=== PATIENT | female | born 1980 ===

== ENCOUNTER → 2024-01-18 | Outpatient (CLI) | payer OTHER | LOC: LAB 13:51 → LAB SHORT 13:51 | DX: N85.8 Other specified noninflammatory disorders of uterus (principal) | CPT/HCPCS: 88305 ==

== ENCOUNTER → 2024-01-18 | Outpatient (CLI) | payer OTHER ==
[2024-01-31 08:15] LABS: HPV HIGH RISK BY TMA Not Detected; HPV SOURCE Cervical/Vag
== END ==
LOC: LAB SHORT 13:37 → LAB 13:37
PROVIDERS: Obstetrics & Gynecology
DX: Z01.419 Encounter for gynecological examination (general) (routine) without abnormal findings (principal)
CPT/HCPCS: 87624; G0123

== ENCOUNTER 2024-04-10 08:53 | Day surgery (SDC) | payer OTHER ==
[2024-04-10] VITALS (14 sets, daily range): BP systolic 95–121; BP diastolic 56–65
[~2024-04-10] VITALS: Ht 167.6 cm; Wt 85.8 kg
[~2024-04-10 08:53] MED LIST: ALPR1 PO; AMPDEX30CR PO; BUPR150ER PO; CeFAZolin Sodium 2,000 MG in NS 100 ML IV SCH; Lactated Ringer's 1,000 ML IV SCH
[2024-04-10] MEDS ORDERED: IBUP600 PO (09:07)
[2024-04-10] MEDS ORDERED: Bupivacaine 0.5% W/EPI 1:200000 SDV 30 ML Vial ONE (09:29)
[2024-04-10] MEDS ORDERED: propofoL 20 ML IV ONE (09:40)
[2024-04-10] MEDS ORDERED: FentaNYL Citrate 50 MCG/ML 2 ML Injection ONE ×2 (10:27→11:02)
--- NOTE | 2024-04-10 10:29 | NUR ---
Ambulatory in Day Surgery. History, Chart, Medications and Allergies reviewed before start of procedure. Lungs clear T/O to Auscultation. Patient confirms NPO status and agrees with scheduled surgery. Pre-Op teaching done. Pt verbalizes understanding. PT BELONGINGS GIVEN TO SPOUSE FOR SAFEKEEPING.
[2024-04-10] MEDS ORDERED: Dexamethasone Sod Phos 10 MG/ML 1ML VIAL ONE (10:41)
[2024-04-10] MEDS ORDERED: Rocuronium Bromide 10 MG/ML 5ML Injection IV ONE (11:02)
[2024-04-10] MEDS ORDERED: Sugammadex Sodium 200 MG/2ML SDV (100 MG/ML) ONE (11:21)
[2024-04-10] MEDS ORDERED: Ketorolac Tromethamine 30mg Vial ONE (11:33)
[2024-04-10] MEDS ORDERED: Ondansetron HCl 2 MG / ML 2ML Vial ONE (11:34)
[2024-04-10] MEDS ORDERED: Ondansetron HCl 2 MG / ML 2ML Vial IV PRN (12:25)
[2024-04-10] MEDS ORDERED: Simethicone 80 MG Chew PO PRN (12:25)
[2024-04-10] MEDS ORDERED: OxyCODONE HCL 5 MG TAB PO PRN (12:25)
[2024-04-10] MEDS ORDERED: Naloxone HCl 0.4MG / ML 1ML Vial IV PRN (12:25)
[2024-04-10] MEDS ORDERED: HYDROmorphone HCl/Pf 1MG SYR IV PRN (12:30)
[2024-04-10] MEDS ORDERED: DiphenhydrAMINE HCL 25 MG Cap PO PRN (12:30)
[2024-04-10] MEDS ORDERED: Metoclopramide HCl 5MG / ML 2ML Vial IV PRN (12:30)
[2024-04-10] MEDS ORDERED: Lactated Ringer's 1,000 ML IV SCH (12:30)
[2024-04-10] MEDS ORDERED: Ondansetron 4 MG TAB PO PRN (12:30)
[2024-04-10] MEDS ORDERED: FLU VACC TS2024-25(6MOS UP)/PF 45 MCG/0.5 ML SYRINGE IM PRN (12:30)
[2024-04-10] MEDS ORDERED: Metoclopramide HCl 10 MG Tab PO PRN (12:35)
[2024-04-10] MEDS ORDERED: Estradiol 0.1 MG/24 HR Patch TOP ONE (12:35)
[2024-04-10] MEDS ORDERED: Ketorolac Tromethamine 30mg Vial IV PRN (12:50)
[2024-04-10] MEDS ORDERED: Acetaminophen 325 MG TABLET PO SCH (13:00)
--- NOTE | 2024-04-10 13:57 | NUR ---
PT ARRIVED TO UNIT FROM PACU TRANSFERRED PT FROM [facility] TO BED. ORIENTED TO USE OF CALL LIGHT. PT REPORTED HAD TO VOID, ASSISTED TO BSC. PT HAD 100 ML UO. MODERATE AMOUNT OF BLOOD NOTED WHEN WIPED. SPOUSE ASSISTED PT IN PLACING NEW PAD AND UNDERWEAR. PT FELT HOT AND NAUSEATED. PLACED COOL WASHCLOTH TO NECK AND MEDICATED PER ORDERS FOR NAUSEA. NOW BACK TO BED. RESTING WITH EYES CLOSED. CALL LIGTH IN REACH. FAMILY BEDSIDE.
[2024-04-10] MEDS ORDERED: OXYC5 PO (14:31)
--- NOTE | 2024-04-10 17:56 | NUR ---
SUMMARY PT SLEPT T/O AFTERNOON AFTER BEING MEDICATED FOR NAUSEA. AWAKE NOW AND PAINFUL, RATING 5/10. MEDICATED PER ORDERS FOR PAIN. PT AMBULATED TO RESTROOM AND IN ROOM. PASSED VOIDING TRIAL AND PVR. HAD MOD AMOUNT BLOOD NOTED IN TOILET. DISCUSSED WITH PATIENT THE NEED FOR PAIN TO BE AT AN ADEQUATE/TOLERABLE LEVEL AND PT MUST BE ABLE TO TOLERATE PO INTAKE PRIOR TO DC. SPOUSE BEDSIDE.
--- NOTE | 2024-04-10 19:54 | NUR ---
PT GIVEN DISCHARGE INSTRUCTIONS/EDUCATION. WHEN GETTING READY TO GET INTO WHEELCHAIR PT FELT HOT FLASHES AND NAUSEA, IV ACCESS ALEADY DC SO PT GIVEN EMESIS BAG AND COLD WASHCLOTH. VS BP 104/56 HR 77 TEMP 98.4 RR 18 SPO2 94% ON RA. PT SITTING BEDSIDE TO SEE IF THIS RESOLVES. MILLING MACHINE OPERATOR GEAR AND THIS RN EXPLAINED TO PT THEY HAVE OPTION TO STAY NIGHT FOR FURTHER OBSERVATION. PT WANTS TO WAIT 10-15 MINUTES TO SEE IF THIS RESOLVES.
[2024-04-10] MEDS ORDERED: Ondansetron 4 MG SoluTab SL ONE (20:10)
--- NOTE | 2024-04-10 20:11 | NUR ---
DISCHARGE THIS RN REACHED OUT TO DR. WELLS, THE PATIENTS SURGEON. RECIEVED ORDER FOR ONE DOSE OF ZOFRAN ODT. PT REPORTS HER HOT FLASH AND NAUSEA IS RESOLVING, AND THAT SHE FEELS COMFORTABLE WITH DISCHARGING AT THIS TIME. VAGINAL BLEEDING IS MINIMAL, VSS. REMAINS AT BEDSIDE, LOVING AN ATTENTIVE.
--- NOTE | 2024-04-10 20:20 | NUR ---
PT GIVEN ZOFRAN 4MG ODT FOR NAUSEA. VSS. PT DISCHARGED @ 2019 WITH ALL BELOINGINGS.
== END 2024-04-10 20:20 | disposition home or self-care (01) ==
LOC: ORSCMMR 08:53 → ORD 12:30 → SURS 13:22 → ORSCMMR 13:26 → SURS 13:26 → ORSCMMR 20:20
PROVIDERS: Obstetrics & Gynecology
PROC: 0UB77ZZ Excision of Bilateral Fallopian Tubes, Via Natural or Artificial Opening (ICD-10-PCS; principal; 2024-04-10 10:00)
PROC: 0UT9FZZ Resection of Uterus, Via Natural or Artificial Opening With Percutaneous Endoscopic Assistance (ICD-10-PCS; principal; 2024-04-10 10:00)
PROC: 0UT2FZZ Resection of Bilateral Ovaries, Via Natural or Artificial Opening With Percutaneous Endoscopic Assistance (ICD-10-PCS; principal; 2024-04-10 10:00)
DX: N93.9 Abnormal uterine and vaginal bleeding, unspecified (principal); D27.0 Benign neoplasm of right ovary; D27.1 Benign neoplasm of left ovary; N83.12 Corpus luteum cyst of left ovary; F32.A Depression, unspecified; Z79.899 Other long term (current) drug therapy; E66.9 Obesity, unspecified; Z68.30 Body mass index [BMI] 30.0-30.9, adult
CPT/HCPCS: 86850; 86900; 86901; 88307; A9270; J0690; J1100; J1885; J2405; J2704; J2765; J3010; J7120

== ENCOUNTER → 2024-10-27 | Outpatient (CLI) | payer OTHER ==
[~2024-10-27] MED LIST changes: -CeFAZolin Sodium 2,000 MG in NS 100 ML IV SCH; +IBUP600 PO; -Lactated Ringer's 1,000 ML IV SCH; +OXYC5 PO
[2024-10-27 20:27] LABS: Campylobacter Sp Not Detected (NOT DETECT); E. Coli O157 Not Detected (NOT DETECT); Enteroaggregative E. coli-EAEC Not Detected (NOT DETECT); Enteropathogenic E. coli-EPEC Not Detected (NOT DETECT); Enterotoxigenic E. coli-ETEC Not Detected (NOT DETECT); Salmonella Sp Not Detected (NOT DETECT); Shiga Toxin-prod E. coli-STEC Detected (NOT DETECT); Shigella/Enteroin E. coli-EIEC Not Detected (NOT DETECT); Vibrio Sp Not Detected (NOT DETECT)
== END | disposition home or self-care (01) ==
LOC: LAB SHORT 16:40
PROVIDERS: Family Medicine
DX: R19.7 Diarrhea, unspecified (principal)
CPT/HCPCS: 87507